=== PATIENT | female | born 1975 | race African-American/Black ===

== ENCOUNTER 2017-06-18 02:46 | Emergency (ER) | payer SELFPAY ==
[~2017-06-18] VITALS: Ht 167.6 cm; Wt 119.8 kg
[2017-06-18] MEDS ORDERED: METFORMIN500 MG PO (03:11)
[2017-06-18] MEDS ORDERED: GLYBURIDE5 M1 PO (03:11)
[2017-06-18] MEDS ORDERED: LANTUS100 UNIT/M SC (03:12)
[2017-06-18 03:54] LABS: HEMATOCRIT 36.2 % (37.0-47.0); HEMOGLOBIN 12.2 g/dl (12.0-16.0); IMMATURE GRANULOCYTES 0.2 % (0.0-1.0); MEAN CELL VOLUME 85.2 fL CALC (80.0-100.0); MEAN CORPUSCULAR HGB 28.7 pG CALC (26.0-32.0); MEAN CORPUSCULAR HGB CONC 33.7 g/L CALC (32.0-36.0); NEUT# 1.49 thou/uL (2.00-7.15); RED BLOOD COUNT 4.25 mill/uL (4.20-5.60)
[2017-06-18 03:56] LABS: ALBUMIN 3.6 g/dL (3.2-5.0); ALKALINE PHOSPHATASE 91 u/l (38-126); AMYLASE < 30 u/l (30-110); ANION GAP 15 (6-22 (CALC)); BILIRUBIN, TOTAL 0.7 mg/dL (0.0-1.4); BUN 8 mg/dL (7-17); BUN/CREATININE RATIO 13 (12-20 (CALC)); CALCIUM 8.9 mg/dL (8.4-10.2); CARBON DIOXIDE 22 mmol/l (22-30); CHLORIDE 101 mmol/l (95-108); CREATININE 0.7 mg/dL (0.5-1.0); GFR > 60 ML/MIN (>=60 (CALC)); GFR FOR AFR.AMER. > 60 ML/MIN (>=60 (CALC)); LIPASE 94 u/l (23-300); POTASSIUM 4.4 mmol/l (3.5-5.1); SGOT/AST 149 u/l (14-36); SGPT/ALT 292 u/l (9-52); SODIUM 134 mmol/l (137-146); TOTAL PROTEIN 6.9 g/dL (6.3-8.2)
[2017-06-18 04:02] LABS: GLUCOSE 555 mg/dL (65-105)
[2017-06-18 07:30] LABS: URINE BILIRUBIN - DIPSTICK NEGATIVE (NEGATIVE); URINE BLOOD DIPSTICK NEGATIVE (NEGATIVE); URINE CLARITY CLEAR; URINE COLOR YELLOW; URINE GLUCOSE - DIPSTICK >=1000 mg/dL (NEGATIVE); URINE KETONE NEGATIVE (NEGATIVE); URINE LEUK ESTERASE NEGATIVE (NEGATIVE); URINE NITRITE - DIPSTICK NEGATIVE (Negative); URINE PROTEIN - DIPSTICK NEGATIVE (NEG-TRACE); URINE UROBILINOGEN - DIPSTICK 0.2 E.U./dL (0.2)
[2017-06-18 09:08] VITALS: BP 103/67
== END 2017-06-18 09:08 | disposition short-term general hospital (02) | DRG 639 ==
LOC: ED 02:46
PROVIDERS: Emergency Medicine
DX: E11.65 Type 2 diabetes mellitus with hyperglycemia (principal); R16.0 Hepatomegaly, not elsewhere classified; E86.0 Dehydration